=== PATIENT | female | born 1985 | race Caucasian/White ===

== ENCOUNTER → 2020-08-10 10:31 | Outpatient (CLI) | payer OTHER, SELFPAY ==
--- NOTE | ~2020-08-10 | XR_ITS ---
XR lumbar spine 2-3V DATE: 08/10/2020 11:36 INDICATION: Chronic low back pain, radiating. TECHNIQUE: Standing AP, lateral, coned lateral lumbosacral views COMPARISON: None FINDINGS: Minimal dextro scoliosis of the thoracolumbar spine. Normal alignment of the lumbar spine. No fracture or bone destruction or spondylolisthesis. There is mild to moderate loss of interspace height and slight spurring at L1-2 consistent with mild to moderate degenerative disc disease. The remaining lumbar levels interspaces are well preserved. Sacroiliac joints appear normal. IMPRESSION: Mild to moderate degenerative disc disease at L1 to Reviewed, dictated and finalized at location A.
== END ==
PROVIDERS: PCP Internal Medicine; Visit Provider Chiropractor
DX: M54.5 Low back pain (principal); M51.36 Other intervertebral disc degeneration, lumbar region
CPT/HCPCS: 72100